=== PATIENT | female | born 1985 | race African-American/Black ===

== ENCOUNTER 2025-05-07 05:31 | Inpatient (IN) | payer BC ==
[2025-04-26 12:21] LABS: BASOPHILS % 0.6 % (0.0-1.0); EOSINOPHILS % 1.3 % (0.0-6.0); LYMPHOCYTES % 33.6 % (18.0-39.1); MONOCYTES % 7.0 % (4.4-11.3); NEUTROPHILS % 57.1 % (38.7-80.0); RED CELL DISTRIBUTION WIDTH 16.0 % (11.7-14.4)
[~2025-05-07] VITALS: Ht 160 cm; Wt 110.7 kg
[2025-05-07] MEDS ORDERED: SUMATRIPTAN SUC25 MG PO (06:47)
[2025-05-07] MEDS: SCOPOLAMINE 1 MG PATCH ONE (06:50)
[2025-05-07] MEDS: CEFAZOLIN SODIUM 2 GM ONE (06:51)
[2025-05-07] MEDS: LACTATED RINGER'S 1,000 ML ONE (06:51)
[2025-05-07] MEDS ORDERED: LIDOCAINE HCL 2% LOCAL INJ 5 ML SDV VIAL INJ ONE (07:05)
[2025-05-07] MEDS ORDERED: PROPOFOL IV EMULSION 10 MG/ML 20 ML VIAL ONE (07:05)
[2025-05-07] MEDS ORDERED: SUCCINYLCHOLINE CHLORIDE 20 MG/ML 10ML VIAL ONE (07:06)
[2025-05-07] MEDS ORDERED: ROCURONIUM BROMIDE 1 ML IV ONE ×2 (07:06→08:02)
[2025-05-07] MEDS ORDERED: FENTANYL CITRATE/PF 100MCG/2 ML INJ ONE (07:06)
[2025-05-07] MEDS ORDERED: MIDAZOLAM HCL 2 MG/2 ML VIAL ONE (07:08)
[2025-05-07] MEDS ORDERED: ONDANSETRON HCL INJ 2MG/ML 2ML 2 MG/ML VIAL ONE (08:00)
[2025-05-07] MEDS ORDERED: DEXAMETHASONE SOD PHOS INJ 4 MG/ML SDV ONE (08:00)
[2025-05-07] MEDS ORDERED: FAMOTIDINE 20 MG/2 ML VIAL IV ONE (08:00)
[2025-05-07] MEDS ORDERED: HYDROMORPHONE 2MG/ML ONE (08:08)
[2025-05-07] MEDS ORDERED: ACETAMINOPHEN 1000 MG/100 ML 100 ML IV ONE (08:11)
[2025-05-07] MEDS ORDERED: HYDROCODONE/APAP 7.5MG-325MG 1 EA TAB PO PRN (08:15)
[2025-05-07] MEDS: SCOPOLAMINE 1 MG PATCH TOP SCH (08:15)
[2025-05-07] MEDS ORDERED: SUGAMMADEX SODIUM 200 MG/2 ML VIAL IV ONE (08:35)
[2025-05-07 10:44] VITALS: PULSE 79; RESP 18; O2SAT 99
[2025-05-07] MEDS: BUPIVACAINE LIPOSOME/PF 266 MG/20 ML IJ ONE (10:48)
[2025-05-07] MEDS: SODIUM CHLORIDE 0.9% 1000ML 1,000 ML IV SCH ×2 (10:54→21:16)
[2025-05-07 11:33] VITALS: BP 166/82; PULSE 69; RESP 18; TEMP 98.6; O2SAT 97
[2025-05-07 12:23] VITALS: BP 166/82; PULSE 69; RESP 18; TEMP 98.6; O2SAT 97
[2025-05-07] MEDS: ONDANSETRON HCL INJ 2MG/ML 2ML 2 MG/ML VIAL IV PRN ×2 (12:47→16:36)
[2025-05-07] MEDS: DEXAMETHASONE SOD PHOS 10 MG/1 ML VIAL IV PRN (15:44)
[2025-05-07 16:00] VITALS: BP 136/82; PULSE 76; RESP 19; TEMP 97.8; O2SAT 96
[2025-05-07 20:00] VITALS: BP 140/81; PULSE 83; RESP 18; TEMP 98.8; O2SAT 100
[2025-05-07] MEDS: Morphine 2mg Syringe 2 MG/ML SYR IV PRN (21:17)
[2025-05-07] MEDS: PROMETHAZINE 12.5MG/ NACL 0.9% 12.5 MG/50 ML BAG IV PRN (21:18)
[2025-05-07] MEDS: ENOXAPARIN SOD INJ 40 MG/0.4 ML SYR SC SCH (21:18)
[2025-05-08] VITALS (10 sets, daily range): BP systolic 146–161; BP diastolic 72–87; PULSE 76–88; RESP 16–20; TEMP 97.9–99.2; O2SAT 97–100
[2025-05-08 04:57] LABS: BASOPHILS % 0.1 % (0.0-1.0); EOSINOPHILS % 0.1 % (0.0-6.0); LYMPHOCYTES % 8.3 % (18.0-39.1); MONOCYTES % 7.2 % (4.4-11.3); NEUTROPHILS % 83.7 % (38.7-80.0); RED CELL DISTRIBUTION WIDTH 15.3 % (11.7-14.4)
[2025-05-08 05:30] LABS: EST GLOMERULAR FILTRATION RATE 97.0 ML/MIN (>=60); PHOSPHORUS 2.3 MG/DL (2.3-4.7)
[2025-05-09 04:44] LABS: BASOPHILS % 0.2 % (0.0-1.0); EOSINOPHILS % 0.0 % (0.0-6.0); LYMPHOCYTES % 12.9 % (18.0-39.1); MONOCYTES % 7.4 % (4.4-11.3); NEUTROPHILS % 79.1 % (38.7-80.0); RED CELL DISTRIBUTION WIDTH 15.1 % (11.7-14.4)
[2025-05-09 05:18] LABS: EST GLOMERULAR FILTRATION RATE 109.0 ML/MIN (>=60)
[2025-05-09 05:48] VITALS: BP 160/96; PULSE 89; RESP 18; O2SAT 100
[2025-05-09 07:43] VITALS: PULSE 87; RESP 18; O2SAT 98
[2025-05-09 08:20] VITALS: BP 165/90; PULSE 78; RESP 18; TEMP 98.9; O2SAT 98
[2025-05-09 11:30] VITALS: BP 148/63; PULSE 72; RESP 18; TEMP 98.8; O2SAT 99
[2025-05-09 16:30] VITALS: BP 146/85; PULSE 78; RESP 18; TEMP 98.6; O2SAT 98
== END 2025-05-09 18:55 | disposition home or self-care (01) | DRG 621 ==
LOC: OR 05:31 → PACU V 08:02 → MED/SURG 10:25 → OBSVTOIN 05-09 09:15
PROVIDERS: ADMIT Internal Medicine; ATTEND Internal Medicine
PROC: 0BQT4ZZ Repair Diaphragm, Percutaneous Endoscopic Approach (ICD-10-PCS; 2025-05-07)
PROC: 0FB24ZX Excision of Left Lobe Liver, Percutaneous Endoscopic Approach, Diagnostic (ICD-10-PCS; 2025-05-07)
PROC: 0JH83VZ Insertion of Infusion Pump into Abdomen Subcutaneous Tissue and Fascia, Percutaneous Approach (ICD-10-PCS; 2025-05-07)
PROC: 0WHG43Z Insertion of Infusion Device into Peritoneal Cavity, Percutaneous Endoscopic Approach (ICD-10-PCS; 2025-05-07)
PROC: 0DB64Z3 Excision of Stomach, Percutaneous Endoscopic Approach, Vertical (ICD-10-PCS; principal; 2025-05-07 07:48)
DX: E66.01 Morbid (severe) obesity due to excess calories (principal); Z68.41 Body mass index [BMI] 40.0-44.9, adult; J20.9 Acute bronchitis, unspecified; K21.9 Gastro-esophageal reflux disease without esophagitis; G89.18 Other acute postprocedural pain; K44.9 Diaphragmatic hernia without obstruction or gangrene; K76.0 Fatty (change of) liver, not elsewhere classified; I10 Essential (primary) hypertension; Z79.899 Other long term (current) drug therapy; Z87.891 Personal history of nicotine dependence
CPT/HCPCS: 36415; 80053; 81025; 83735; 84100; 85025; 88307; 88313; 93005; 94799; C1894; G0378; J0330; J0666; J1100; J1171; J1308; J1650; J2003; J2250; J2270; J2405; J2470; J2550; J7030; J7050